=== PATIENT | male | born 1965 | race Hispanic/Latino ===

== ENCOUNTER 2017-07-06 07:28 | Day surgery (SDC) | payer OTHER ==
[2017-07-05 11:22] VITALS: BMI 33.0
[2017-07-06] MEDS ORDERED: Propofol 10 mg/ml Inj (20 ML) ONE (08:16)
[2017-07-06] MEDS ORDERED: Lactated Ringer's 1,000 ML IV SCH (09:00)
[2017-07-06] MEDS ORDERED: Atropine 0.4 mg/ml Inj (1 mL) ONE (09:28)
[2017-07-06 10:43] VITALS: BP 118/92; PULSE 61; RESP 18; TEMP 97.5; O2SAT 98
== END 2017-07-06 10:59 | disposition home or self-care (01) ==
LOC: ENDO 07:28
PROVIDERS: ATTEND Specialist
DX: K62.5 Hemorrhage of anus and rectum (principal); K57.30 Diverticulosis of large intestine without perforation or abscess without bleeding; K64.8 Other hemorrhoids
CPT/HCPCS: 45378; J0461; J2001; J2704; J7040; J7120

== ENCOUNTER 2018-03-22 14:40 | Outpatient (CLI) | payer OTHER | END 2018-03-22 14:41 | disposition home or self-care (01) | LOC: LAB 14:40 ==